=== PATIENT | female | born 1995 | race Caucasian/White ===

== ENCOUNTER 2022-05-11 08:23 | Outpatient (CLI) | payer SELFPAY | END 2022-05-11 08:24 | disposition home or self-care (01) | LOC: NFLDREF 08:24 | PROVIDERS: Visit Provider Advanced Practice Midwife | DX: O20.9 Hemorrhage in early pregnancy, unspecified (principal) | CPT/HCPCS: 84702 ==

== ENCOUNTER 2022-05-11 19:35 | Emergency (ER) | payer SELFPAY ==
[2022-05-11] VITALS (12 sets, daily range): BP systolic 116–126; BP diastolic 76–81; PULSE 81–106; RESP 18; TEMP 36.6; O2SAT 94–100; BMI 28.3
--- NOTE | 2022-05-11 20:31 | CRLHL7_ITS ---
For Patients: As a result of the Century Cures Act, medical imaging exams and procedure reports are released immediately into your electronic medical record. You may view this report before your referring provider. If you have questions, please contact your health care provider. INDICATION: Positive test in March, bleeding for the last 2 days TECHNIQUE: Ultrasound pelvis transabdominal and transvaginal for better assessment or to better visualize the endometrium. Real-time sonographic images with spectral and color Doppler imaging of the ovaries were obtained. COMPARISON: None FINDINGS: Uterus: No intrauterine gestation identified. 9.7 x 5.5 x 6.1 cm. Normal echotexture of the myometrium. No masses. Endometrium: Transvaginal imaging was performed to better evaluate the endometrium. 19 mm in thickness. No sign of endometrial mass or fluid. Right ovary: 2.7 x 1.8 x 2.6 cm. There is a simple cyst on the right ovary measuring 1.6 x 1.1 x 1.5 cm. Normal arterial and venous blood flow. Left ovary: 2.5 x 2.7 x 1.5 cm. No ovarian or adnexal masses. Normal arterial and venous blood flow. Cul-de-sac: No significant free fluid. IMPRESSION: No intrauterine or extrauterine gestation identified. Thickened endometrium. Simple cyst on the right ovary. Dictated by Yesica Reddy MD @ 05/12/2022 12:57:06 AM (Electronically Signed)
--- NOTE | 2022-05-11 20:33 | ED_ITS ---
HPI - Female Genitourinary General Chief complaint: Vaginal Bleeding Stated complaint: Soaking a pad for 2 hours, cramps starting Time Seen by Provider: 05/11/22 20:27 History of Present Illness HPI Narrative: Pt is a woman who presents with vaginal bleeding which started 2 days ago but increased significantly 24 hours ago. Pt has minimal pain in her pelvis. She does not appear to be passing any polyps. She has had no fever or chills. No vomiting. Pt has not passed any material. Pt had no difficulty with her previous and has a healthy 16 month old child. No chronic health problems or bleeding disorders. Pt states that she is currently bleeding one pad per hour. Related Data Allergies Allergy/AdvReac Type Severity Reaction Status Date / Time No Known Drug Allergies Allergy Verified 05/11/22 19:41 Review of Systems Status of ROS: Reports: 10 or more systems reviewed and unremarkable except as noted in History and below PFSH PFS Social History Smoking Status: Never smoker Do you use any of these nicotine containing products: None Second hand tobacco smoke exposure: No How often do you have a drink containing alcohol: never How often do you have six or more drinks on one occasion: Never AUDIT-C Alcohol total score: 0 Non-prescribed substance use: denies use service: No Exam Narrative: Exam Narrative: EXAM GENERAL: Patient appears comfortable and well. EYES: No scleral icterus. ENT: Tympanic membranes and oropharynx normal. THYROID: no thyroid nodules or thyromegaly. LYMPH: No supraclavicular or cervical lymphadenopathy. SKIN: Visible skin seen during exam normal or with benign process only. EXT: No dependent lower extremity pedal edema. HEART: Regular rate and rhythm with no murmurs, rubs, or gallops. LUNGS: Clear to auscultation bilaterally with no crackles or wheezes. ABD: Soft, non tender, non distended. PSYCH: Good eye contact, speech is not pressured. Const: Vital Signs, click to edit/add: Vital Signs - 24 hr 05/11/22 19:42 Temperature 97.9 F Pulse Rate [Pulse Oximeter] 99 Respiratory Rate 18 Blood Pressure [Ri ght Upper Arm] 116/81 Pulse Oximetry 100 Oxygen Delivery Me thod Room Air Course Course Hospital Course: Pt seen and examined. Quant HCG, CBC, Type and Screen ordered. 1 liter of normal saline given IV. Reevaluation(s) Reevaluation #1: Ultrasound of pelvis negative for fetus. Otherwise normal. Beta hcg less than that drawn this morning. Time: 23:29 Vital Signs Vital signs: Initial Vital Signs Temperature 97.9 F 05/11/22 19:42 Temperature Source Temporal Artery Scan 05/11/22 19:42 Pulse Rate 99 05/11/22 19:42 Pulse Rhythm 05/11/22 19:42 Respiratory Rate 18 05/11/22 19:42 Blood Pressure 116/81 05/11/22 19:42 Blood Pressure Mean 92 05/11/22 19:42 Blood Pressure Position Sitting 05/11/22 19:42 Pulse Oximetry 100 05/11/22 19:42 Oxygen Delivery Method 05/11/22 19:42 Vital Signs Temperature 97.9 F 05/11/22 19:42 Pulse Rate 99 05/11/22 19:42 Respiratory Rate 18 05/11/22 19:42 Blood Pressure 116/81 05/11/22 19:42 Pulse Oximetry 100 05/11/22 19:42 Oxygen Delivery Method 05/11/22 19:42 Temperature 97.9 F 05/11/22 19:42 Pulse Rate 99 05/11/22 19:42 Respiratory Rate 18 05/11/22 19:42 Blood Pressure 116/81 05/11/22 19:42 Pulse Oximetry 100 05/11/22 19:42 Oxygen Delivery Method 05/11/22 19:42 MDM - Female Genitourinary MDM Narrative Medical decision making narrative: Pt is a 26 year old who presents with vaginal bleeding in her 10th week of gestation. Pt's labs reassuring. US negative for fetus and otherwise negative. Blood type O positive. Pt case discussed with OB who recommended symptomatic treatment with outpt follow up. Differential Diagnosis Differential diagnosis: Likely vaginitis, ruptured ovarian cyst, cyst of Bartholin's gland, cystitis and dysmenorrhea Lab Data Labs: Lab Results 05/11/22 05/11/22 05/11/22 Range/Units 20:43 20:50 20:50 WBC 10.79 (4.50-11.00) K/uL RBC 4.47 (4.00-5.20) m/uL Hgb 13.5 (12.0-16.0) gm/dL Hct 39.7 (33.0-51.0) % MCV 89 (80-100) fL MCH 30 (26-34) pg MCHC 34 (32-36) gm/dL RDW Coeff of Carlos 12.3 (11.5-15.5) % Plt Count 265 (140-440) K/uL Neut % (Auto) 70.3 (42.0-72.0) % Lymph % (Auto) 19.4 L (20-44) % Braxton % (Auto) 7.9 (0.0-11.0) % Eos % (Auto) 1.8 (0.0-7.0) % Baso % (Auto) 0.6 (0.0-3.0) % Neut # (Auto) 7.59 H (1.7-7.0) K/uL Lymph # (Auto) 2.10 (0.90-2.90) K/uL Braxton # (Auto) 0.90 (0.00-0.90) K/UL Eos # (Auto) 0.19 (0.00-0.50) K/uL Baso # (Auto) 0.07 (0.00-0.30) K/uL INR 0.93 (0.91-1.10) APTT 29 (23-33) Seconds HCG, Quant 84139.00 mIU/mL Blood Type Antibody Screen 05/11/22 Range/Units 20:50 WBC (4.50-11.00) K/uL RBC (4.00-5.20) m/uL Hgb (12.0-16.0) gm/dL Hct (33.0-51.0) % MCV (80-100) fL MCH (26-34) pg MCHC (32-36) gm/dL RDW Coeff of Carlos (11.5-15.5) % Plt Count (140-440) K/uL Neut % (Auto) (42.0-72.0) % Lymph % (Auto) (20-44) % Braxton % (Auto) (0.0-11.0) % Eos % (Auto) (0.0-7.0) % Baso % (Auto) (0.0-3.0) % Neut # (Auto) (1.7-7.0) K/uL Lymph # (Auto) (0.90-2.90) K/uL Braxton # (Auto) (0.00-0.90) K/UL Eos # (Auto) (0.00-0.50) K/uL Baso # (Auto) (0.00-0.30) K/uL INR (0.91-1.10) APTT (23-33) Seconds HCG, Quant mIU/mL Blood Type O Positive Antibody Screen NEGATIVE Discharge Plan Discharge Clinical Impression: Miscarriage Condition: Stable Instructions: Miscarriage (ED) Additional Instructions: Tylenol Motrin Rest Fluids Follow up with OBGYN this coming week. Activity Level: No Restrictions Discharge Diet: Regular Follow Up/Referrals: Hanna Sanchez CNM [Primary Care Provider] - Stand Alone Forms: [facility] Info Instructions
[2022-05-11] MEDS: 0.9 % SODIUM CHLORIDE 1000 ml 1,000 ML IV (20:50)
[2022-05-11 21:02] LABS: Basophils Absolute Auto 0.07 K/uL (0.00-0.30); Basophils Percent Auto 0.6 % (0.0-3.0); Eosinophils Absolute Auto 0.19 K/uL (0.00-0.50); Eosinophils Percent Auto 1.8 % (0.0-7.0); Hematocrit 39.7 % (33.0-51.0); Hemoglobin* 13.5 gm/dL (12.0-16.0); Lymphocytes Percent Auto 19.4 % (20-44); Mean Corpuscular HGB Conc 34 gm/dL (32-36); Mean Corpuscular Hemoglobin 30 pg (26-34); Mean Corpuscular Volume 89 fL (80-100); Monocytes Percent Auto 7.9 % (0.0-11.0); Neutrophils Absolute Auto 7.59 K/uL (1.7-7.0); Neutrophils Percent Auto 70.3 % (42.0-72.0); Platelet Count* 265 K/uL (140-440); RDW Coefficient of Variation % 12.3 % (11.5-15.5); Red Blood Count 4.47 m/uL (4.00-5.20); White Blood Count* 10.79 K/uL (4.50-11.00)
[2022-05-11 21:13] LABS: Slide Review Reflex No
[2022-05-11 21:36] LABS: INR 0.93 (0.91-1.10); Partial Thromboplastin Time* 29 Seconds (23-33); Prothrombin Time 13.1 Seconds
== END 2022-05-12 | disposition home or self-care (01) ==
PROVIDERS: Emergency Provider Internal Medicine; PCP Advanced Practice Midwife
DX: O03.9 Complete or unspecified spontaneous abortion without complication (principal)
CPT/HCPCS: 36415; 76801; 76817; 76857; 84702; 85025; 85610; 85730; 86850; 86900; 86901; 93976; 99283; J7030

== ENCOUNTER 2022-06-08 15:39 | Outpatient (CLI) | payer SELFPAY | END 2022-06-08 15:40 | disposition home or self-care (01) | PROVIDERS: Visit Provider Advanced Practice Midwife | DX: R42 Dizziness and giddiness (principal) | CPT/HCPCS: 80053; 84443 ==